=== PATIENT | male | born 1955 | race Caucasian/White ===

== ENCOUNTER 2018-09-23 07:33 | Outpatient (CLI) | payer BC ==
[2018-09-23 08:55] LABS: CREATININE,URINE 76.1 mg/dL
[2018-09-23 09:16] LABS: MICROALBUMIN,URINE < 0.2 mg/dL (0-300.0)
[2018-09-23 10:33] LABS: HB2 TOTAL 16.2 g/dL; HEMOGLOBIN A1C 1.19 g/dL; HEMOGLOBIN A1C % 8.9 % (4.6-6.2)
== END 2018-09-23 07:34 | disposition home or self-care (01) ==
LOC: LAB 07:33
PROVIDERS: ATTEND Student in an Organized Health Care Education/Training Program
DX: E10.9 Type 1 diabetes mellitus without complications (principal)
CPT/HCPCS: 36415; 82043; 82570; 83036

== ENCOUNTER 2023-02-04 10:30 | Outpatient (CLI) | payer MEDICARE, OTHER ==
--- NOTE | 2023-02-05 08:56 | XRAY Report ---
PROCEDURE: Knee 3 View LT INDICATIONS: PAIN IN LT KNEE TECHNIQUE: 3 views of the knee(s) were acquired. COMPARISON: X-ray left tibia/fibula, 10/26/2018. FINDINGS: Bones: No fractures or dislocations. No suspicious bony lesions. Mild tricompartmental knee joint d egeneration. Soft tissues: Small effusion. No suspicious soft tissue calcifications or masses. IMPRESSION: 1. Mild degenerative joint disease. 2. Small knee joint effusion. Reviewed by: Clarisa Willard MD on 02/05/2023 8:55 AM PDT Approved by: Clarisa Willard MD on 02/05/2023 8:55 AM PDT Station ID: [id number]
== END 2023-02-04 10:31 | disposition home or self-care (01) ==
LOC: DI 10:30
PROVIDERS: ATTEND Family Medicine
DX: M17.12 Unilateral primary osteoarthritis, left knee (principal); M25.462 Effusion, left knee

== ENCOUNTER 2023-07-12 10:45 | Outpatient (CLI) | payer MEDICARE, OTHER | END 2023-07-12 11:00 | disposition home or self-care (01) | LOC: LAB.N 10:45 | PROVIDERS: ATTEND Emergency Medicine | DX: T14.8XXA Other injury of unspecified body region, initial encounter (principal); L08.89 Other specified local infections of the skin and subcutaneous tissue | CPT/HCPCS: 87070; 87205 ==